=== PATIENT | female | born 1935 | race Caucasian/White ===

== ENCOUNTER 2018-02-12 12:33 | Inpatient (IN) ==
[2018-02-15] MEDS ORDERED: traMADol 50 MG TABLET PO PRN (00:27)
[2018-02-15] MEDS ORDERED: D5% in Water 1,000 ML IVC PRN (03:15)
[2018-02-15] MEDS ORDERED: *HR* Dextrose 50 % in Water (Syg) 50 ML SYRINGE IVP PRN (03:15)
[2018-02-15] MEDS ORDERED: Dextrose Gel 15 GM/37.5 ML TUBE PO PRN ×2 (03:15)
[2018-02-15] MEDS ORDERED: Nitroglycerin 0.4 MG TAB.SUBL SL PRN (03:17)
[2018-02-15] MEDS: *HR* Enoxaparin 40 MG/0.4 ML SYRINGE SQ SCH (05:36)
[2018-02-15 05:49] LABS: Basophils % 0.2 %; Eosinophils # 0.2 K/mcL (0.0-0.6); Eosinophils % 2.7 %; Hematocrit 21.8 % (35.3-44.9); Hemoglobin 7.4 g/dL (11.5-15.4); Immature Granulocytes % 1.7 % (0-4); Lymphocytes # 1.6 K/mcL (0.6-4.6); Lymphocytes % 27.5 %; Mean Corpuscular HGB Conc 33.9 g/dL (31.6-35.5); Mean Corpuscular Hemoglobin 32.7 pg (28.0-33.3); Mean Corpuscular Volume 96.5 fL (83.0-100.0); Mean Platelet Volume 10.1 fL (9.4-12.4); Monocytes # 0.7 K/mcL (0.0-1.3); Monocytes % 11.6 %; Neutrophils # 3.3 K/mcL (1.6-8.9); Nucleated Red Blood Cells 0.9 /100 WBC (0); Platelet Count 175 K/mcL (140-400); Red Blood Count 2.26 M/mcL (3.82-4.97); Red Cell Distribution Width 13.9 % (11.5-14.5); Segmented Neutrophils % 56.3 %
[2018-02-15 06:06] LABS: Alanine Aminotransferase 12 Units/L (7-52); Albumin 2.6 g/dL (3.5-5.7); Albumin/Globulin Ratio 1.2 (1.1-2.2); Alkaline Phosphatase 43 Units/L (34-104); Aspartate Amino Transferase 23 Units/L (13-39); BUN/Creatinine Ratio 10 (6-26); Blood Urea Nitrogen 8 mg/dL (8-23); Calcium 8.5 mg/dL (8.6-10.3); Carbon Dioxide 29 mEq/L (23-29); Chloride 104 mEq/L (98-107); Globulin 2.1 g/dL (2.4-3.5); Glucose 96 mg/dL (70-105); Magnesium 1.5 mg/dL (1.6-2.6); Osmolality,Calculated 288 (280-300); Potassium 3.7 mEq/L (3.5-5.1); Sodium 140 mEq/L (136-145); Total Protein 4.7 g/dL (6.4-8.9); eGFR For Non-African Americans > 60 (> 60)
[2018-02-15] MEDS: Insulin LISPRO 300 UNITS/3 ML VIAL SQ SCH ×4 (07:50→20:48)
[2018-02-15] MEDS: Aspirin Enteric Coated 81 MG Tablet PO SCH (08:40)
[2018-02-15] MEDS: Acetaminophen 325 MG TABLET PO PRN (08:40)
[2018-02-15] MEDS: Iron Polysaccharide Complex 150 MG CAPSULE PO SCH (08:41)
[2018-02-15] MEDS: *HR* Metformin 500 MG TABLET PO SCH ×2 (08:41→17:31)
[2018-02-15] MEDS: *HR* Glimepiride 2 MG TABLET PO SCH (08:41)
--- NOTE | 2018-02-15 10:34 | Internal Med History&Physical ---
Date of Encounter: 02/15/18 Time of Encounter: 10:30 Assessment and Plan (1) S/P hip replacement Current visit: Yes Status: Acute Patient was admitted to facility for rehabilitation due to right total hip replacement that was performed at [facility] on 02/09/2018. Right hip shows minimal amount of edema but otherwise incisions look healthy and intact. Patient states that her pain has been well tolerated with current pain medications. Physical therapy evaluation pending with recommendations. We will continue with current medications and plan of care. Qualifiers: Laterality: right Qualified Code(s): Z96.641 - Presence of right artificial hip joint (2) Diabetes Current visit: Yes Status: Chronic No acute issues at this time. Patient states that her glucoses usually well- controlled when at home and that she usually only checks her morning fasting glucoses. Patient currently is on fingersticks before meals and at bedtime and we will continue with sliding scale coverage and will continue with her home regimen. 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 We will continue with current medications. Qualifiers: Hypertension type: essential hypertension Qualified Code(s): I10 - Essential (primary) hypertension (4) CAD (coronary artery disease) Current visit: Yes Status: Chronic No acute issues. Patient denies any chest palpitations or discomforts. We will continue with current medications. Qualifiers: Coronary Disease-Associated Artery/Lesion type: unspecified vessel or lesion type [place] vs. transplanted heart: [place] heart Associated angina: angina presence unspecified Qualified Code(s): I25.10 - Atherosclerotic heart disease of [place] coronary artery without angina pectoris (5) Osteoarthritis Current visit: Yes Status: Chronic Patient complaints of moderate joint pain to bilateral shoulders, which she states is chronic arthritic pain that she is experienced. Patient states that her pain is tolerable with current medications. We will continue with current therapy and plan of care Qualifiers: Osteoarthritis location: unspecified site Osteoarthritis type: unspecified Qualified Code(s): M19.90 - Unspecified osteoarthritis, unspecified site (6) Anemia Current visit: Yes Status: Acute Patient's labs reviewed this morning which shows a hemoglobin of 7.4. We will review patient's medical records from Hospital to evaluate her last existing hemoglobin. Agent currently is asymptomatic with vital signs stable and denies any dizziness or palpitations. We will repeat labs in the morning Qualifiers: Anemia type: unspecified type Qualified Code(s): D64.9 - Anemia, unspecified Internal Medicine - H&P: HPI Chief complaint: right THR Admitted From: Hospital to Hospital Transfer Plans for Post Hospital Care: Home History of present illness: Ms. Funes is a 82 year old female, who was transfered from an [facility], where she had an elective right THR on 02/09/2018. Her recovery at the hospital per medical records was uneventful. Patient as transfered to this facility for rehab due to deconditioning secondary the the right THR. Patient has a history of OA, DM, CAD and HTN. She states that her pain has been fairly well controlled with current oral pain meds. States that most of her pain has really been from the arthritic pain to her bilateral shoulders. She states that she has not had a BM in several days. Denies any abdominal cramping or pain. Denies any dyspnea or productive cough. States that her DM has usually been well controlled and that she usually only checks her glucose in the mornings. Past Med Surg Social Fam HX - Past Medical History Medical history: coronary artery disease, diabetes, hyperlipidemia, hypertension Additional medical history: osteoarthritis Psychiatric history: no psych history - Past Surgical History Surgical History: breast surgery, pacemaker/AICD Additional surgical history: bunion excision, breast lumpectomy - Social History Smoking Status: Never smoker Smokeless Tobacco Status: No Alcohol use: none Drug use: none Internal Medicine - H&P: Meds Aspirin [Lo-Dose Aspirin EC] 81 mg PO DAILY 02/15/18 [History] Atenolol [Tenormin] 50 mg PO DAILY 02/15/18 [History] Atorvastatin Calcium [Lipitor] 80 mg PO HS 02/15/18 [History] Chlorthalidone [Chlorthalidone] 12.5 mg PO DAILY 02/15/18 [History] Glimepiride [Amaryl] 2 mg PO DAILY 02/15/18 [History] Levothyroxine [Synthroid] 75 mcg PO DAILY 02/15/18 [History] Metformin HCl 500 mg PO BID 02/15/18 [History] Vitamin E Acetate [Vitamin E] 400 unit PO DAILY 02/15/18 [History] 3 Allergy/AdvReac Type Severity Reaction Status Date / Time codeine AdvReac Vomiting Verified 02/15/18 00:25 All Systems PM: A 10-system review of systems was performed and is negative for pertinent findings except as documented above in the HPI. - Constitutional Constitutional: no chills, no fever(s), no night sweats - EENT Eyes: as per HPI, no change in vision, no discharge, no pain, no photophobia Ears: no ear discharge, no ear pain, no tinnitus Nose, mouth and throat: no dysphagia, no nasal discharge, no neck pain, no sore throat - Cardiovascular Cardiovascular ROS IM: as per HPI, no chest pain, no diaphoresis, no dyspnea, no lightheadedness, no palpitations, no syncope - Respiratory Respiratory: as per HPI, no cough, no dyspnea, no wheezing, no excessive phlegm production - Gastrointestinal Gastrointestinal: no abdominal pain, no diarrhea, no hematemesis, no hematochezia, no melena, no nausea, no vomiting - Genitourinary Genitourinary: no change in urinary stream, no dysuria, no flank pain, no hematuria - Musculoskeletal Musculoskeletal ROS IM: as per HPI, no numbness, no tingling - Integumentary Integumentary IM: as per HPI, no rash, no unusual bruising - Neurological Neurological ROS: as per HPI, no confusion, no convulsions, no focal weakness, no numbness, no tingling, no tremor(s) - Hematologic/Lymphatic Hematologic/Lymphatic: no easy bruising - Constitutional Vitals: Temp Pulse Resp BP Pulse Ox 98.3 F 73 16 121/67 93 02/15/18 07:09 02/15/18 07:09 02/15/18 07:09 02/15/18 07:09 02/15/18 07:09 General appearance: Present: A&O X 3, pleasant - Head Head exam: Present: atraumatic, normocephalic - Eye Eye exam: Present: PERRL, conjuntiva pink, sclera anicteric Pupils: Present: PERRL - Neck Neck exam general surgery: Present: supple, trachea midline. Absent: lymphadenopathy - Respiratory Respiratory exam: Present: CTAB. Absent: accessory muscle use, rales, rhonchi, wheezes - Cardiovascular Cardiovascular exam: Present: RRR, +S1, +S2. Absent: diastolic murmur, gallop, rubs, systolic murmur - GI/Abdominal GI/Abdominal exam: Present: normal bowel sounds, soft, no peritoneal signs. Absent: distended, tenderness - Extremities Exam Extremities exam: Present: warm, radial pulses palpable and symmetrical. Absent : calf tenderness, cyanotic, pedal edema Additional comments: Right hip shows moderate edema along the surgical area. Right lateral hip and thigh surgical incisions remain dry and intact. No erythema with minimal ecchymosis - Neurological Exam Neurological exam: Present: CN II-XII intact, oriented X3, no focal deficits. Absent: pronater drift, facial droop, speech deficit - Skin Skin exam: Present: dry, intact Internal Med - H&P Results - Labs CBC & Chem 7: 02/15/18 05:25 02/15/18 05:25 Labs: Short CBC 02/15/18 Range/Units 05:25 WBC 5.9 (4.3-11.1) K/mcL Hgb 7.4 L (11.5-15.4) g/dL Hct 21.8 L (35.3-44.9) % Plt Count 175 (140-400) K/mcL Neutrophils # 3.3 (1.6-8.9) K/mcL BMP 02/15/18 05:25 Sodium 140 Potassium 3.7 Chloride 104 Carbon Dioxide 29 BUN 8 Creatinine 0.78 Glucose 96 Calcium 8.5 L Liver Function 02/15/18 Range/Units 05:25 Total Bilirubin 1.0 (0.3-1.0) mg/dL AST 23 (13-39) Units/L ALT 12 (7-52) Units/L Alkaline Phosphatase 43 (34-104) Units/L Albumin 2.6 L (3.5-5.7) g/dL
[2018-02-15 14:38] LABS: Estimated Average Glucose 131 mg/dl; Hemoglobin A1C 6.2 %
[2018-02-15] MEDS: Magnesium Oxide 400 MG TABLET PO SCH (20:47)
[2018-02-16] MEDS: traMADol 50 MG TABLET PO PRN (02:31)
[2018-02-16] MEDS: *HR* Enoxaparin 40 MG/0.4 ML SYRINGE SQ SCH (06:14)
[2018-02-16] MEDS: Ondansetron ODT 4 MG TAB.RAPDIS SL PRN ×2 (07:23→14:40)
[2018-02-16] MEDS: Insulin LISPRO 300 UNITS/3 ML VIAL SQ SCH ×4 (08:01→19:56)
[2018-02-16] MEDS: *HR* Glimepiride 2 MG TABLET PO SCH (08:03)
[2018-02-16] MEDS: *HR* Metformin 500 MG TABLET PO SCH ×2 (08:03→17:00)
[2018-02-16] MEDS: Aspirin Enteric Coated 81 MG Tablet PO SCH (10:21)
[2018-02-16] MEDS: Iron Polysaccharide Complex 150 MG CAPSULE PO SCH (10:22)
[2018-02-16] MEDS: Magnesium Oxide 400 MG TABLET PO SCH ×2 (10:22→19:53)
--- NOTE | 2018-02-16 10:24 | Internal Med Progress Note ---
Date of Encounter: 02/16/18 Time of Encounter: 10:21 - Assessment and plan (1) S/P hip replacement Current Visit: Yes Status: Acute Assessment and plan: Participating well with therapy. Will continue to follow. No sign of infection surgical site. Pain medication effective. Follow up with ortho as scheduled. Qualifiers: Laterality: right Qualified Code(s): Z96.641 - Presence of right artificial hip joint (2) Constipation Current Visit: Yes Status: Acute Assessment and plan: start miralax today. will follow for results. Qualifiers: Constipation type: slow transit constipation Qualified Code(s): K59.01 - Slow transit constipation (3) Diabetes Current Visit: Yes Status: Chronic Assessment and plan: Controlled with current medication. Monitor fingerstick blood sugar. Will adjust medicines as necessary. Qualifiers: Diabetes mellitus type: type 2 Diabetes mellitus group home insulin use: unspecified group home insulin use status Diabetes mellitus complication status : with unspecified complications Qualified Code(s): E11.8 - Type 2 diabetes mellitus with unspecified complications (4) HTN (hypertension) Current Visit: Yes Status: Chronic Assessment and plan: Controlled with current medication. Monitor blood pressure. Qualifiers: Hypertension type: essential hypertension Qualified Code(s): I10 - Essential (primary) hypertension (5) CAD (coronary artery disease) Current Visit: Yes Status: Chronic Assessment and plan: Denies chest pain. Continue current medication. Qualifiers: Coronary Disease-Associated Artery/Lesion type: unspecified vessel or lesion type [place] vs. transplanted heart: [place] heart Associated angina: angina presence unspecified Qualified Code(s): I25.10 - Atherosclerotic heart disease of [place] coronary artery without angina pectoris (6) Osteoarthritis Current Visit: Yes Status: Chronic Assessment and plan: Pain controlled. Qualifiers: Osteoarthritis location: unspecified site Osteoarthritis type: unspecified Qualified Code(s): M19.90 - Unspecified osteoarthritis, unspecified site (7) Anemia Current Visit: Yes Status: Acute Assessment and plan: Last hemoglobin 7.4. Blood pressure stable. Patient refuses transfusion due to presybeterian beliefs. Qualifiers: Anemia type: unspecified type Qualified Code(s): D64.9 - Anemia, unspecified - Time Spent With Patient less than 15 minutes - Subjective Interval history: Patient participating in therapy. Complains of dizziness while sitting on the side of the bed. Also complaining of nausea. Has not had a bowel movement once prior to surgery. States pain is controlled with current pain medication. Hemoglobin was last 7.4 patient refuses transfusion. Blood pressure stable. Discussed adding Miralax. Maintaining appetite and hydration. Denies shortness of breath or chest pain. Denies fever, chills vomiting or diarrhea. Denies abdominal pain. - Constitutional Vitals: Temp Pulse Resp BP Pulse Ox 99.2 F 69 16 116/67 94 02/16/18 07:12 02/16/18 07:12 02/16/18 07:12 02/16/18 07:12 02/16/18 07:12 General appearance: Present: cooperative, A&O X 3, pleasant, no acute distress, answers questions appropriately - Head Head exam: Present: atraumatic, normocephalic - Eye Eye exam: Present: PERRL, conjuntiva pink, sclera anicteric Pupils: Present: PERRL - Neck Neck exam general surgery: Present: supple, trachea midline. Absent: lymphadenopathy - Respiratory Respiratory exam: Present: CTAB. Absent: accessory muscle use, rales, rhonchi, wheezes - Cardiovascular Cardiovascular exam: Present: RRR, +S1, +S2. Absent: diastolic murmur, gallop, rubs, systolic murmur - GI/Abdominal GI/Abdominal exam: Present: normal bowel sounds, soft, no peritoneal signs. Absent: distended, tenderness - Extremities Exam Extremities exam: Present: warm, radial pulses palpable and symmetrical. Absent : calf tenderness, cyanotic, pedal edema - Incison Comments: Right hip incision dressing dry and intact. Surrounding ecchymosis and edema. - Neurological Exam Neurological exam: Present: CN II-XII intact, oriented X3, no focal deficits. Absent: pronater drift, facial droop, speech deficit - Skin Skin exam: Present: dry, intact Internal Medicine: Result - Labs CBC & Chem 7: 02/15/18 05:25 02/15/18 05:25 Consult Discharge Plan - Plan Referrals: NONE,PCP [Primary Care Provider] -
[2018-02-17 05:24] LABS: Hematocrit 23.8 % (35.3-44.9)
[2018-02-17] MEDS: *HR* Enoxaparin 40 MG/0.4 ML SYRINGE SQ SCH (06:08)
[2018-02-17] MEDS: Insulin LISPRO 300 UNITS/3 ML VIAL SQ SCH ×4 (07:13→20:33)
[2018-02-17] MEDS: Iron Polysaccharide Complex 150 MG CAPSULE PO SCH (08:15)
[2018-02-17] MEDS: *HR* Glimepiride 2 MG TABLET PO SCH (08:15)
[2018-02-17] MEDS: Magnesium Oxide 400 MG TABLET PO SCH ×2 (08:15→20:34)
[2018-02-17] MEDS: Aspirin Enteric Coated 81 MG Tablet PO SCH (08:15)
[2018-02-17] MEDS: *HR* Metformin 500 MG TABLET PO SCH ×2 (08:16→17:51)
--- NOTE | 2018-02-17 10:52 | Internal Med Progress Note ---
Date of Encounter: 02/17/18 Time of Encounter: 10:47 - Assessment and plan (1) S/P hip replacement Current Visit: Yes Status: Acute Assessment and plan: Participating well with therapy. Will continue to follow. No sign of infection surgical site. Pain medication effective. Follow up with ortho as scheduled. Qualifiers: Laterality: right Qualified Code(s): Z96.641 - Presence of right artificial hip joint (2) Constipation Current Visit: Yes Status: Acute Assessment and plan: 2 small bowel movements today. Continue Justine lacks. Qualifiers: Constipation type: slow transit constipation Qualified Code(s): K59.01 - Slow transit constipation (3) Diabetes Current Visit: Yes Status: Chronic Assessment and plan: Controlled with current medication. Monitor fingerstick blood sugar. Will adjust medicines as necessary. 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 Monitor blood pressure. Qualifiers: Hypertension type: essential hypertension Qualified Code(s): I10 - Essential (primary) hypertension (5) CAD (coronary artery disease) Current Visit: Yes Status: Chronic Assessment and plan: Denies chest pain. Continue current medication. Qualifiers: Coronary Disease-Associated Artery/Lesion type: unspecified vessel or lesion type [place] vs. transplanted heart: [place] heart Associated angina: angina presence unspecified Qualified Code(s): I25.10 - Atherosclerotic heart disease of [place] coronary artery without angina pectoris (6) Osteoarthritis Current Visit: Yes Status: Chronic Assessment and plan: Pain controlled. Qualifiers: Osteoarthritis location: unspecified site Osteoarthritis type: unspecified Qualified Code(s): M19.90 - Unspecified osteoarthritis, unspecified site (7) Anemia Current Visit: Yes Status: Acute Assessment and plan: Improving. Hemoglobin 8.0 today. Was 7.4. Blood pressure stable. Patient refuses transfusion due to nondenominational beliefs. Qualifiers: Anemia type: unspecified type Qualified Code(s): D64.9 - Anemia, unspecified - Time Spent With Patient less than 15 minutes - Subjective Interval history: Patient participating in therapy. States dizziness has improved. Hemoglobin 8.0 which has improved from 7.4. Had small bowel movement times 2 today. Blood pressure stable. Maintaining appetite and hydration. Denies shortness of breath or chest pain. Denies fever, chills vomiting or diarrhea. Denies abdominal pain. - Constitutional Vitals: Temp Pulse Resp BP Pulse Ox 97.9 F 75 18 111/57 90 02/17/18 07:19 02/17/18 07:19 02/17/18 07:19 02/17/18 07:19 02/17/18 07:19 General appearance: Present: cooperative, A&O X 3, pleasant, no acute distress, answers questions appropriately - Head Head exam: Present: atraumatic, normocephalic - Eye Eye exam: Present: PERRL, conjuntiva pink, sclera anicteric Pupils: Present: PERRL - Neck Neck exam general surgery: Present: supple, trachea midline. Absent: lymphadenopathy - Respiratory Respiratory exam: Present: CTAB. Absent: accessory muscle use, rales, rhonchi, wheezes - Cardiovascular Cardiovascular exam: Present: RRR, +S1, +S2. Absent: diastolic murmur, gallop, rubs, systolic murmur - GI/Abdominal GI/Abdominal exam: Present: normal bowel sounds, soft, no peritoneal signs. Absent: distended, tenderness - Extremities Exam Extremities exam: Present: warm, radial pulses palpable and symmetrical. Absent : calf tenderness, cyanotic, pedal edema - Incison Comments: Right hip incision dressing dry and intact. No sign of infection - Neurological Exam Neurological exam: Present: CN II-XII intact, oriented X3, no focal deficits. Absent: pronater drift, facial droop, speech deficit - Skin Skin exam: Present: dry, intact Internal Medicine: Result - Labs CBC & Chem 7: 02/17/18 05:20 02/15/18 05:25 Labs: Short CBC 02/17/18 Range/Units 05:20 Hgb 8.0 L (11.5-15.4) g/dL Hct 23.8 L (35.3-44.9) % Consult Discharge Plan - Plan Referrals: NONE,PCP [Primary Care Provider] -
[2018-02-18] MEDS: *HR* Enoxaparin 40 MG/0.4 ML SYRINGE SQ SCH (05:03)
[2018-02-18] MEDS: Insulin LISPRO 300 UNITS/3 ML VIAL SQ SCH ×4 (08:08→20:05)
[2018-02-18] MEDS: Aspirin Enteric Coated 81 MG Tablet PO SCH (08:14)
[2018-02-18] MEDS: Iron Polysaccharide Complex 150 MG CAPSULE PO SCH (08:14)
[2018-02-18] MEDS: *HR* Glimepiride 2 MG TABLET PO SCH (08:15)
[2018-02-18] MEDS: Magnesium Oxide 400 MG TABLET PO SCH ×2 (08:15→20:17)
[2018-02-18] MEDS: *HR* Metformin 500 MG TABLET PO SCH ×2 (08:15→17:37)
--- NOTE | 2018-02-18 09:58 | Internal Med Progress Note ---
Date of Encounter: 02/18/18 Time of Encounter: 09:56 - Assessment and plan (1) S/P hip replacement Current Visit: Yes Status: Acute Assessment and plan: Participating well with therapy. Will continue to follow. No sign of infection surgical site. Pain medication effective. Follow up with ortho as scheduled. Qualifiers: Laterality: right Qualified Code(s): Z96.641 - Presence of right artificial hip joint (2) Constipation Current Visit: Yes Status: Acute Assessment and plan: improving. continue miralax. Qualifiers: Constipation type: slow transit constipation Qualified Code(s): K59.01 - Slow transit constipation (3) Diabetes Current Visit: Yes Status: Chronic Assessment and plan: Controlled with current medication. Monitor fingerstick blood sugar. Will adjust medicines as necessary. 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 Monitor blood pressure. Qualifiers: Hypertension type: essential hypertension Qualified Code(s): I10 - Essential (primary) hypertension (5) CAD (coronary artery disease) Current Visit: Yes Status: Chronic Assessment and plan: Denies chest pain. Continue current medication. Qualifiers: Coronary Disease-Associated Artery/Lesion type: unspecified vessel or lesion type [place] vs. transplanted heart: [place] heart Associated angina: angina presence unspecified Qualified Code(s): I25.10 - Atherosclerotic heart disease of [place] coronary artery without angina pectoris (6) Osteoarthritis Current Visit: Yes Status: Chronic Assessment and plan: Pain controlled. Qualifiers: Osteoarthritis location: unspecified site Osteoarthritis type: unspecified Qualified Code(s): M19.90 - Unspecified osteoarthritis, unspecified site (7) Anemia Current Visit: Yes Status: Acute Assessment and plan: Improving. Hemoglobin 8.0 yesterday. Was 7.4previously. Blood pressure stable. Patient refuses transfusion due to bahai beliefs. Qualifiers: Anemia type: unspecified type Qualified Code(s): D64.9 - Anemia, unspecified - Time Spent With Patient less than 15 minutes - Subjective Interval history: Patient participating in therapy. States dizziness has improved. Bowels moving normal. Blood pressure stable. Maintaining appetite and hydration. Denies shortness of breath or chest pain. Denies fever, chills vomiting or diarrhea. - Constitutional Vitals: Temp Pulse Resp BP Pulse Ox 98.3 F 70 17 129/65 94 02/18/18 07:21 02/18/18 07:21 02/18/18 07:21 02/18/18 07:21 02/18/18 07:21 General appearance: Present: cooperative, A&O X 3, pleasant, no acute distress, answers questions appropriately - Head Head exam: Present: atraumatic, normocephalic - Eye Eye exam: Present: PERRL, conjuntiva pink, sclera anicteric Pupils: Present: PERRL - Neck Neck exam general surgery: Present: supple, trachea midline. Absent: lymphadenopathy - Respiratory Respiratory exam: Present: CTAB. Absent: accessory muscle use, rales, rhonchi, wheezes - Cardiovascular Cardiovascular exam: Present: RRR, +S1, +S2. Absent: diastolic murmur, gallop, rubs, systolic murmur - GI/Abdominal GI/Abdominal exam: Present: normal bowel sounds, soft, no peritoneal signs. Absent: distended, tenderness - Extremities Exam Extremities exam: Present: warm, radial pulses palpable and symmetrical. Absent : calf tenderness, cyanotic, pedal edema - Incison Comments: Right hip dressing dry and intact. No drainage. - Neurological Exam Neurological exam: Present: CN II-XII intact, oriented X3, no focal deficits. Absent: pronater drift, facial droop, speech deficit - Skin Skin exam: Present: dry, intact Internal Medicine: Result - Labs CBC & Chem 7: 02/17/18 05:20 02/15/18 05:25 Consult Discharge Plan - Plan Referrals: NONE,PCP [Primary Care Provider] -
[2018-02-18] MEDS: traMADol 50 MG TABLET PO PRN (10:16)
[2018-02-19] MEDS: *HR* Enoxaparin 40 MG/0.4 ML SYRINGE SQ SCH (06:19)
[2018-02-19] MEDS: *HR* Glimepiride 2 MG TABLET PO SCH (08:47)
[2018-02-19] MEDS: Aspirin Enteric Coated 81 MG Tablet PO SCH (08:47)
[2018-02-19] MEDS: Magnesium Oxide 400 MG TABLET PO SCH ×2 (08:47→20:43)
[2018-02-19] MEDS: Iron Polysaccharide Complex 150 MG CAPSULE PO SCH (08:48)
[2018-02-19] MEDS: traMADol 50 MG TABLET PO PRN (08:48)
[2018-02-19] MEDS: *HR* Metformin 500 MG TABLET PO SCH ×2 (08:50→17:31)
[2018-02-19] MEDS: Insulin LISPRO 300 UNITS/3 ML VIAL SQ SCH ×4 (09:26→20:41)
--- NOTE | 2018-02-19 10:46 | Internal Med Progress Note ---
Date of Encounter: 02/19/18 Time of Encounter: 10:43 - Assessment and plan (1) S/P hip replacement Current Visit: Yes Status: Acute Assessment and plan: No acute issues. Patient continues to have some tenderness during mobilization , which she states has improved over the past 24 hours. Recent x-ray right hip appears nonacute. Surgical incisions appear to be healing well with no signs of infection. Hip alignment appears normal with no deformity noted. He does state that therapy has been progressing well. Recent hemoglobin was obtained which shows at 8.0. Continue with current plan of care and medications. Pain is been well managed with current medications Qualifiers: Laterality: right Qualified Code(s): Z96.641 - Presence of right artificial hip joint (2) Diabetes Current Visit: Yes Status: Chronic Assessment and plan: No acute issues. Patient's glucose has maintained less than 150 on most fingersticks. We will reduce her frequency of fingersticks to twice a day before meals Qualifiers: Diabetes mellitus type: type 2 Diabetes mellitus retirement insulin use: unspecified intermediate project manager insulin use status Diabetes mellitus complication status : with unspecified complications Qualified Code(s): E11.8 - Type 2 diabetes mellitus with unspecified complications (3) HTN (hypertension) Current Visit: Yes Status: Chronic Assessment and plan: Vital signs remained stable. We will continue with current medications. Qualifiers: Hypertension type: essential hypertension Qualified Code(s): I10 - Essential (primary) hypertension (4) CAD (coronary artery disease) Current Visit: Yes Status: Chronic Assessment and plan: No acute issues. Patient denies any chest discomforts or palpitations. Denies any dyspnea. We will continue with current medications Qualifiers: Coronary Disease-Associated Artery/Lesion type: unspecified vessel or lesion type [place] vs. transplanted heart: [place] heart Associated angina: angina presence unspecified Qualified Code(s): I25.10 - Atherosclerotic heart disease of [place] coronary artery without angina pectoris (5) Osteoarthritis Current Visit: Yes Status: Chronic Assessment and plan: Patient continues with generalized arthritic discomforts, but states that her overall pain status has improved over the past few days. We will continue with current therapy. We will continue with current medications Qualifiers: Osteoarthritis location: unspecified site Osteoarthritis type: unspecified Qualified Code(s): M19.90 - Unspecified osteoarthritis, unspecified site (6) Anemia Current Visit: Yes Status: Acute Assessment and plan: Patient had a hemoglobin that was done this morning which shows at 8.0, which has improved from 7.4 several days ago. We will continue to monitor with serial labs. No signs of active bleeding. Qualifiers: Anemia type: unspecified type Qualified Code(s): D64.9 - Anemia, unspecified - Time Spent With Patient less than 15 minutes - Subjective Interval history: Patient appears relaxed and currently complains of slight right hip pain during ambulation while therapy. Patient states that her pain is somewhat better than it has been over the past few days and believes that she is only strained her hip. Recent x-ray right hip shows no acute process. Denies any dyspnea or other issues. States that her pain has been tolerable with current medications. - Constitutional Vitals: Temp Pulse Resp BP Pulse Ox 98.7 F 70 16 126/55 92 02/19/18 08:00 02/19/18 08:00 02/19/18 08:00 02/19/18 08:00 02/19/18 08:00 General appearance: Present: cooperative, A&O X 3, pleasant, no acute distress, answers questions appropriately - Head Head exam: Present: atraumatic, normocephalic - Eye Eye exam: Present: PERRL, conjuntiva pink, sclera anicteric Pupils: Present: PERRL - Neck Neck exam general surgery: Present: supple, trachea midline. Absent: lymphadenopathy - Respiratory Respiratory exam: Present: CTAB. Absent: accessory muscle use, rales, rhonchi, wheezes - Cardiovascular Cardiovascular exam: Present: RRR, +S1, +S2. Absent: diastolic murmur, gallop, rubs, systolic murmur - GI/Abdominal GI/Abdominal exam: Present: normal bowel sounds, soft, no peritoneal signs. Absent: distended, tenderness - Extremities Exam Extremities exam: Present: warm, radial pulses palpable and symmetrical. Absent : calf tenderness, cyanotic, pedal edema Additional comments: Right hip with slight edema surrounding surgical site. Surgical incisions on lateral hip and thigh currently healing well with no erythema or ecchymosis noted. - Neurological Exam Neurological exam: Present: CN II-XII intact, oriented X3, no focal deficits. Absent: pronater drift, facial droop, speech deficit - Skin Skin exam: Present: dry, intact Internal Medicine: Result - Labs CBC & Chem 7: 02/17/18 05:20 02/15/18 05:25 - Impressions Impressions Hip X-Ray 02/18/18 19:26 IMPRESSION: Recent postsurgical change of right total hip arthroplasty with no acute abnormality detected. D/ / iKp Giang MD / Kip Giang MD Interpreting Provider: Kip Giang MD Consult Discharge Plan - Plan Referrals: NONE,PCP [Primary Care Provider] -
[2018-02-19] MEDS ORDERED: Mag Hydrox/Al Hydrox/Simeth 30 ML UDC PO PRN (13:26)
[2018-02-19] MEDS: Famotidine 20 MG TABLET PO SCH (17:31)
[2018-02-19] MEDS: Acetaminophen 325 MG TABLET PO PRN (17:31)
[2018-02-19] MEDS: Ondansetron ODT 4 MG TAB.RAPDIS SL PRN (20:51)
[2018-02-20] MEDS: *HR* Enoxaparin 40 MG/0.4 ML SYRINGE SQ SCH (05:23)
[2018-02-20 06:21] LABS: Alanine Aminotransferase 18 Units/L (7-52); Albumin 3.1 g/dL (3.5-5.7); Albumin/Globulin Ratio 1.4 (1.1-2.2); Alkaline Phosphatase 59 Units/L (34-104); Aspartate Amino Transferase 25 Units/L (13-39); BUN/Creatinine Ratio 17 (6-26); Blood Urea Nitrogen 14 mg/dL (8-23); Calcium 8.9 mg/dL (8.6-10.3); Carbon Dioxide 28 mEq/L (23-29); Chloride 102 mEq/L (98-107); Globulin 2.2 g/dL (2.4-3.5); Glucose 45 mg/dL (70-105); Magnesium 1.8 mg/dL (1.6-2.6); Osmolality,Calculated 284 (280-300); Potassium 3.9 mEq/L (3.5-5.1); Sodium 138 mEq/L (136-145); Total Protein 5.3 g/dL (6.4-8.9); eGFR For Non-African Americans > 60 (> 60)
[2018-02-20 07:29] LABS: Hematocrit 27.5 % (35.3-44.9); Hemoglobin 8.9 g/dL (11.5-15.4); Mean Corpuscular HGB Conc 32.4 g/dL (31.6-35.5); Mean Corpuscular Hemoglobin 34.2 pg (28.0-33.3); Mean Corpuscular Volume 105.8 fL (83.0-100.0); Mean Platelet Volume 9.8 fL (9.4-12.4); Platelet Count 260 K/mcL (140-400); Red Cell Distribution Width 18.3 % (11.5-14.5)
[2018-02-20] MEDS: Magnesium Oxide 400 MG TABLET PO SCH ×2 (08:42→20:24)
[2018-02-20] MEDS: Iron Polysaccharide Complex 150 MG CAPSULE PO SCH (08:42)
[2018-02-20] MEDS: *HR* Metformin 500 MG TABLET PO SCH ×2 (08:42→17:11)
[2018-02-20] MEDS: Famotidine 20 MG TABLET PO SCH ×2 (08:42→17:11)
[2018-02-20] MEDS: Aspirin Enteric Coated 81 MG Tablet PO SCH (08:45)
[2018-02-20] MEDS: Insulin LISPRO 300 UNITS/3 ML VIAL SQ SCH ×4 (08:45→20:21)
[2018-02-20] MEDS: *HR* Glimepiride 2 MG TABLET PO SCH (08:45)
--- NOTE | 2018-02-20 08:55 | Internal Med Progress Note ---
Date of Encounter: 02/20/18 Time of Encounter: 08:53 - Assessment and plan (1) S/P hip replacement Current Visit: Yes Status: Acute Assessment and plan: Incision is s table pain is well controlled getting Rehab No complications improving Qualifiers: Laterality: right Qualified Code(s): Z96.641 - Presence of right artificial hip joint (2) Diabetes Current Visit: Yes Status: Chronic Assessment and plan: On oral meds HBA1c not available Her last few blood sugars have been low D/C amryl continue Metformin . Due to her age hypoglycemic sides effects can be more harmful then high Blood sugars . HBA1c ordered Qualifiers: Diabetes mellitus type: type 2 Diabetes mellitus [place] insulin use: unspecified longterm insulin use status Diabetes mellitus complication status : with unspecified complications Qualified Code(s): E11.8 - Type 2 diabetes mellitus with unspecified complications (3) HTN (hypertension) Current Visit: Yes Status: Chronic Assessment and plan: stable On meds will continue to follow Qualifiers: Hypertension type: essential hypertension Qualified Code(s): I10 - Essential (primary) hypertension (4) CAD (coronary artery disease) Current Visit: Yes Status: Chronic Assessment and plan: stable no chest pain Doing well and tolerating PT well Qualifiers: Coronary Disease-Associated Artery/Lesion type: unspecified vessel or lesion type [place] vs. transplanted heart: [place] heart Associated angina: angina presence unspecified Qualified Code(s): I25.10 - Atherosclerotic heart disease of [place] coronary artery without angina pectoris (5) Anemia Current Visit: Yes Status: Acute Assessment and plan: low H/H on Iron will follow Iron levels ordered Qualifiers: Anemia type: unspecified type Qualified Code(s): D64.9 - Anemia, unspecified (6) Constipation Current Visit: Yes Status: Acute Assessment and plan: meds given , on opoids as we for pain exacerbating her symptoms Soft Abdomen , laxatives added Qualifiers: Constipation type: slow transit constipation Qualified Code(s): K59.01 - Slow transit constipation - Subjective Interval history: Cross coverage No new complains Pain is well controlled some constipation otherwise she is feeling better NO hypoglycemic sympotms although her Blood sugars was low this morning - Constitutional Vitals: Temp Pulse Resp BP Pulse Ox 98.3 F 73 16 118/81 90 02/20/18 07:24 02/20/18 07:24 02/20/18 07:24 02/20/18 07:24 02/20/18 07:24 General appearance: Present: cooperative, A&O X 3, pleasant, no acute distress, answers questions appropriately Exam: laying comfortably in bed - Head Head exam: Present: atraumatic - Eye Eye exam: Present: EOMI, PERRL Pupils: Present: PERRL - Neck Neck exam general surgery: Present: supple. Absent: tenderness, nuchal rigidity - Respiratory Respiratory exam: Present: CTAB. Absent: accessory muscle use, chest wall tenderness, decreased breath sounds, rales, respiratory distress, rhonchi, stridor, wheezes - Cardiovascular Cardiovascular exam: Present: RRR, +S1, +S2. Absent: distant heart sounds, irregular rhythm, JVD, systolic murmur - GI/Abdominal GI/Abdominal exam: Present: hyperactive bowel sounds, normal bowel sounds, soft. Absent: distended, firm, guarding, rebound, rigid, tenderness - Extremities Exam Extremities exam: Absent: pedal edema, tenderness, warm - Incison Incision: Present: clean and dry, intact. Absent: red, swollen, inflamed, purulent, indurated - Neurological Exam Neurological exam: Present: alert, CN II-XII intact, oriented X3, no focal deficits. Absent: facial droop, speech deficit Internal Medicine: Result - Labs CBC & Chem 7: 02/20/18 05:25 02/20/18 05:25 Labs: Short CBC 02/20/18 Range/Units 05:25 WBC 7.8 (4.3-11.1) K/mcL Hgb 8.9 L (11.5-15.4) g/dL Hct 27.5 L (35.3-44.9) % Plt Count 260 (140-400) K/mcL BMP 02/20/18 05:25 Sodium 138 Potassium 3.9 Chloride 102 Carbon Dioxide 28 BUN 14 Creatinine 0.81 Glucose 45 L Calcium 8.9 Liver Function 02/20/18 Range/Units 05:25 Total Bilirubin 1.0 (0.3-1.0) mg/dL AST 25 (13-39) Units/L ALT 18 (7-52) Units/L Alkaline Phosphatase 59 (34-104) Units/L Albumin 3.1 L (3.5-5.7) g/dL - Impressions Impressions KUB X-Ray 02/19/18 13:25 IMPRESSION: Nonobstructive bowel gas pattern. D/ / Kip High MD / Kip High MD Interpreting Provider: Kip High MD Consult Discharge Plan - Plan Referrals: NONE,PCP [Primary Care Provider] -
[2018-02-21] MEDS: *HR* Enoxaparin 40 MG/0.4 ML SYRINGE SQ SCH (05:15)
[2018-02-21] MEDS: Insulin LISPRO 300 UNITS/3 ML VIAL SQ SCH ×4 (07:54→20:38)
[2018-02-21] MEDS: *HR* Glimepiride 2 MG TABLET PO SCH (07:54)
--- NOTE | 2018-02-21 08:23 | Internal Med Progress Note ---
Date of Encounter: 02/21/18 Time of Encounter: 08:21 - Assessment and plan (1) S/P hip replacement Current Visit: Yes Status: Acute Assessment and plan: stable and improving . Incision healing well .clean Qualifiers: Laterality: right Qualified Code(s): Z96.641 - Presence of right artificial hip joint (2) Diabetes Current Visit: Yes Status: Chronic Assessment and plan: HBA1c is 6.2 blood sugars doesn't need to be s tightly controlled explained to patient Amryl discontinued Qualifiers: Diabetes mellitus type: type 2 Diabetes mellitus alf insulin use: unspecified alf insulin use status Diabetes mellitus complication status : with unspecified complications Qualified Code(s): E11.8 - Type 2 diabetes mellitus with unspecified complications (3) HTN (hypertension) Current Visit: Yes Status: Chronic Assessment and plan: stable on meds no side effects no dizziness Qualifiers: Hypertension type: essential hypertension Qualified Code(s): I10 - Essential (primary) hypertension (4) CAD (coronary artery disease) Current Visit: Yes Status: Chronic Qualifiers: Coronary Disease-Associated Artery/Lesion type: unspecified vessel or lesion type [place] vs. transplanted heart: [place] heart Associated angina: angina presence unspecified Qualified Code(s): I25.10 - Atherosclerotic heart disease of [place] coronary artery without angina pectoris (5) Anemia Current Visit: Yes Status: Acute Qualifiers: Anemia type: unspecified type Qualified Code(s): D64.9 - Anemia, unspecified (6) Constipation Current Visit: Yes Status: Acute Assessment and plan: responding to meds stable and improving . Continue supportive treatment Qualifiers: Constipation type: slow transit constipation Qualified Code(s): K59.01 - Slow transit constipation - Subjective Interval history: Cross coverage No new complains Pain is well controlled Constipation is getting better and she feels much better No low blood sugars. She is interested to go home . Slept well - Constitutional Vitals: Temp Pulse Resp BP Pulse Ox 98.6 F 73 16 125/58 93 02/21/18 06:55 02/21/18 06:55 02/21/18 06:55 02/21/18 06:55 02/21/18 06:55 General appearance: Present: cooperative, A&O X 3, pleasant, no acute distress, answers questions appropriately - Head Head exam: Present: atraumatic - Eye Eye exam: Present: EOMI, PERRL Pupils: Present: PERRL - Neck Neck exam general surgery: Present: supple. Absent: tenderness, nuchal rigidity - Respiratory Respiratory exam: Present: CTAB. Absent: chest wall tenderness, respiratory distress, rhonchi, stridor, wheezes, tachypnea - Cardiovascular Cardiovascular exam: Present: RRR, +S1, +S2. Absent: irregular rhythm, JVD - GI/Abdominal GI/Abdominal exam: Present: normal bowel sounds, soft. Absent: distended, guarding, rebound, rigid - Extremities Exam Extremities exam: Absent: calf tenderness, pedal edema, tenderness - Incison Incision: Present: clean and dry, intact. Absent: draining, red, swollen, inflamed, erythema, indurated, open - Neurological Exam Neurological exam: Present: alert, CN II-XII intact, oriented X3, no focal deficits. Absent: facial droop, speech deficit Internal Medicine: Result - Labs CBC & Chem 7: 02/20/18 05:25 02/20/18 05:25 Consult Discharge Plan - Plan Referrals: NONE,PCP [Primary Care Provider] -
[2018-02-21] MEDS: Magnesium Oxide 400 MG TABLET PO SCH ×2 (09:15→20:38)
[2018-02-21] MEDS: Aspirin Enteric Coated 81 MG Tablet PO SCH (09:15)
[2018-02-21] MEDS: Famotidine 20 MG TABLET PO SCH ×2 (09:15→17:20)
[2018-02-21] MEDS: *HR* Metformin 500 MG TABLET PO SCH ×2 (09:16→17:20)
[2018-02-21] MEDS: Iron Polysaccharide Complex 150 MG CAPSULE PO SCH (09:16)
[2018-02-21] MEDS: Acetaminophen 325 MG TABLET PO PRN (09:16)
[2018-02-22] MEDS: Famotidine 20 MG TABLET PO SCH ×2 (05:41→17:31)
[2018-02-22] MEDS: *HR* Enoxaparin 40 MG/0.4 ML SYRINGE SQ SCH (05:41)
[2018-02-22 06:10] LABS: Basophils % 0.4 %; Eosinophils # 0.2 K/mcL (0.0-0.6); Eosinophils % 3.3 %; Hematocrit 30.8 % (35.3-44.9); Hemoglobin 9.9 g/dL (11.5-15.4); Immature Granulocytes % 1.2 % (0-4); Lymphocytes % 29.7 %; Mean Corpuscular HGB Conc 32.1 g/dL (31.6-35.5); Mean Corpuscular Hemoglobin 33.2 pg (28.0-33.3); Mean Corpuscular Volume 103.4 fL (83.0-100.0); Mean Platelet Volume 9.7 fL (9.4-12.4); Monocytes # 0.7 K/mcL (0.0-1.3); Monocytes % 9.4 %; Neutrophils # 3.9 K/mcL (1.6-8.9); Platelet Count 252 K/mcL (140-400); Red Blood Count 2.98 M/mcL (3.82-4.97); Red Cell Distribution Width 19.3 % (11.5-14.5)
[2018-02-22 06:28] LABS: BUN/Creatinine Ratio 14 (6-26); Blood Urea Nitrogen 13 mg/dL (8-23); Calcium 9.1 mg/dL (8.6-10.3); Carbon Dioxide 29 mEq/L (23-29); Chloride 102 mEq/L (98-107); Glucose 96 mg/dL (70-105); Osmolality,Calculated 286 (280-300); Potassium 4.6 mEq/L (3.5-5.1); Sodium 138 mEq/L (136-145); eGFR For Non-African Americans 58 (> 60)
[2018-02-22] MEDS: traMADol 50 MG TABLET PO PRN (08:27)
[2018-02-22] MEDS: Magnesium Oxide 400 MG TABLET PO SCH ×2 (08:27→20:22)
[2018-02-22] MEDS: Aspirin Enteric Coated 81 MG Tablet PO SCH (08:27)
[2018-02-22] MEDS: Iron Polysaccharide Complex 150 MG CAPSULE PO SCH (08:27)
[2018-02-22] MEDS: *HR* Metformin 500 MG TABLET PO SCH ×2 (09:25→17:32)
[2018-02-22] MEDS: Insulin LISPRO 300 UNITS/3 ML VIAL SQ SCH ×4 (09:44→20:24)
[2018-02-22] MEDS: *HR* Glimepiride 2 MG TABLET PO SCH (09:45)
--- NOTE | 2018-02-22 10:32 | Internal Med Progress Note ---
Date of Encounter: 02/22/18 Time of Encounter: 10:30 - Assessment and plan (1) S/P hip replacement Current Visit: Yes Status: Acute Assessment and plan: Participating well with therapy. Will continue to follow. No sign of infection surgical site. Pain medication effective. Follow up with ortho as scheduled. Qualifiers: Laterality: right Qualified Code(s): Z96.641 - Presence of right artificial hip joint (2) Constipation Current Visit: Yes Status: Acute Assessment and plan: improving. continue miralax. Qualifiers: Constipation type: slow transit constipation Qualified Code(s): K59.01 - Slow transit constipation (3) Diabetes Current Visit: Yes Status: Chronic Assessment and plan: Controlled with current medication. Monitor fingerstick blood sugar. Will adjust medicines as necessary. Qualifiers: Diabetes mellitus type: type 2 Diabetes mellitus fci insulin use: unspecified fci insulin use status Diabetes mellitus complication status : with unspecified complications Qualified Code(s): E11.8 - Type 2 diabetes mellitus with unspecified complications (4) HTN (hypertension) Current Visit: Yes Status: Chronic Assessment and plan: Controlled with current medication. Monitor blood pressure. Qualifiers: Hypertension type: essential hypertension Qualified Code(s): I10 - Essential (primary) hypertension (5) CAD (coronary artery disease) Current Visit: Yes Status: Chronic Assessment and plan: Denies chest pain. Continue current medication. Qualifiers: Coronary Disease-Associated Artery/Lesion type: unspecified vessel or lesion type [place] vs. transplanted heart: [place] heart Associated angina: angina presence unspecified Qualified Code(s): I25.10 - Atherosclerotic heart disease of [place] coronary artery without angina pectoris (6) Osteoarthritis Current Visit: Yes Status: Chronic Assessment and plan: Pain controlled. Qualifiers: Osteoarthritis location: unspecified site Osteoarthritis type: unspecified Qualified Code(s): M19.90 - Unspecified osteoarthritis, unspecified site (7) Anemia Current Visit: Yes Status: Acute Assessment and plan: Improving hemoglobin 9.9 today. Qualifiers: Anemia type: unspecified type Qualified Code(s): D64.9 - Anemia, unspecified - Time Spent With Patient less than 15 minutes - Subjective Interval history: Patient participating in therapy. States pain is controlled. Last bowel movement 2 days ago. Encourage to take Justine lacks today. Maintaining appetite and hydration. Denies shortness of breath or chest pain. Denies fever, chills vomiting or diarrhea. Planning for discharge to home tomorrow. - Constitutional Vitals: Temp Pulse Resp BP Pulse Ox 98.0 F 70 16 147/75 97 02/22/18 07:30 02/22/18 07:30 02/22/18 07:30 02/22/18 07:30 02/22/18 07:30 General appearance: Present: cooperative, A&O X 3, pleasant, no acute distress, answers questions appropriately - Head Head exam: Present: atraumatic, normocephalic - Eye Eye exam: Present: PERRL, conjuntiva pink, sclera anicteric Pupils: Present: PERRL - Neck Neck exam general surgery: Present: supple, trachea midline. Absent: lymphadenopathy - Respiratory Respiratory exam: Present: CTAB. Absent: accessory muscle use, rales, rhonchi, wheezes - Cardiovascular Cardiovascular exam: Present: RRR, +S1, +S2. Absent: diastolic murmur, gallop, rubs, systolic murmur - GI/Abdominal GI/Abdominal exam: Present: normal bowel sounds, soft, no peritoneal signs. Absent: distended, tenderness - Extremities Exam Extremities exam: Present: warm, radial pulses palpable and symmetrical. Absent : calf tenderness, cyanotic, pedal edema - Incison Comments: Right hip dressing dry and intact. No drainage no swelling. - Neurological Exam Neurological exam: Present: CN II-XII intact, oriented X3, no focal deficits. Absent: pronater drift, facial droop, speech deficit - Skin Skin exam: Present: dry, intact Internal Medicine: Result - Labs CBC & Chem 7: 02/22/18 05:50 02/22/18 05:50 Labs: Short CBC 02/22/18 Range/Units 05:50 WBC 6.9 (4.3-11.1) K/mcL Hgb 9.9 L (11.5-15.4) g/dL Hct 30.8 L (35.3-44.9) % Plt Count 252 (140-400) K/mcL Neutrophils # 3.9 (1.6-8.9) K/mcL BMP 02/22/18 05:50 Sodium 138 Potassium 4.6 Chloride 102 Carbon Dioxide 29 BUN 13 Creatinine 0.92 Glucose 96 Calcium 9.1 Consult Discharge Plan - Plan Referrals: NONE,PCP [Primary Care Provider] - Joyce,Pietro Levi, MD [Non-Partnered Physician] - 02/26/18 11:00 am
[2018-02-22 13:14] LABS: % Iron Saturation 23 % (15-50); Iron 73 mcg/dL (50-170); Transferrin 223 mg/dL (203-362)
[2018-02-23] MEDS ORDERED: *HR* Enoxaparin 30 MG/0.3 ML SYRINGE SQ SCH (06:00)
[2018-02-23] MEDS: Famotidine 20 MG TABLET PO SCH (06:15)
[2018-02-23] MEDS: traMADol 50 MG TABLET PO PRN (06:16)
[2018-02-23 07:24] VITALS: BP 132/62
[2018-02-23] MEDS: Insulin LISPRO 300 UNITS/3 ML VIAL SQ SCH ×2 (07:36→12:35)
[2018-02-23] MEDS: Magnesium Oxide 400 MG TABLET PO SCH (08:11)
[2018-02-23] MEDS: Aspirin Enteric Coated 81 MG Tablet PO SCH (08:11)
[2018-02-23] MEDS: *HR* Metformin 500 MG TABLET PO SCH (08:11)
[2018-02-23] MEDS: Iron Polysaccharide Complex 150 MG CAPSULE PO SCH (08:11)
--- NOTE | 2018-02-23 11:45 | Discharge Summary ---
Orders not resulted at time of discharge: Pending orders 02/19/18 13:26 Ova & Parasite Exam Routine Date of Encounter: 02/23/18 Time of Encounter: 11:39 - Discharge Diagnosis (1) S/P hip replacement Priority: Primary Status: Acute Comments: Improving. Continue home health physical therapy. Follow up with ortho as scheduled. Qualifiers: Laterality: right Qualified Code(s): Z96.641 - Presence of right artificial hip joint (2) Constipation Priority: Secondary Status: Acute Comments: Continue stool softeners. Qualifiers: Constipation type: slow transit constipation Qualified Code(s): K59.01 - Slow transit constipation (3) Diabetes Priority: Secondary Status: Chronic Comments: Controlled. Continue current medications. Follow up with PCP. Qualifiers: Diabetes mellitus type: type 2 Diabetes mellitus [employer] insulin use: unspecified fpc insulin use status Diabetes mellitus complication status : with unspecified complications Qualified Code(s): E11.8 - Type 2 diabetes mellitus with unspecified complications (4) HTN (hypertension) Priority: Secondary Status: Chronic Comments: Controlled. Monitor blood pressure. Continue current medications. Follow up with PCP. Qualifiers: Hypertension type: essential hypertension Qualified Code(s): I10 - Essential (primary) hypertension (5) CAD (coronary artery disease) Priority: Secondary Status: Chronic Comments: Denies chest pain. Continue current medications. Follow up with PCP. Qualifiers: Coronary Disease-Associated Artery/Lesion type: unspecified vessel or lesion type [place] vs. transplanted heart: [place] heart Associated angina: angina presence unspecified Qualified Code(s): I25.10 - Atherosclerotic heart disease of [place] coronary artery without angina pectoris (6) Osteoarthritis Priority: Secondary Status: Chronic Comments: Pain controlled. Qualifiers: Osteoarthritis location: unspecified site Osteoarthritis type: unspecified Qualified Code(s): M19.90 - Unspecified osteoarthritis, unspecified site (7) Anemia Priority: Secondary Status: Acute Comments: Improving. Follow up with PCP. Qualifiers: Anemia type: unspecified type Qualified Code(s): D64.9 - Anemia, unspecified Hospital course: Ms. Funes is a 82 year old female discharging to home today status post right total hip replacement. Hemoglobin stable at 9.9. Will continue home health physical therapy as well home health nursing. Follow up with PCP and ortho as scheduled. Discharge discussed with: patient, family, nurse, social work - Time Spent with Patient Total time spent providing and/or coordinating discharge services: Less than 30 minutes - Discharge Medications Home Medications: Aspirin [Lo-Dose Aspirin EC] 81 mg PO DAILY 02/15/18 [History] Atenolol [Tenormin] 50 mg PO DAILY 02/15/18 [History] Atorvastatin Calcium [Lipitor] 80 mg PO HS 02/15/18 [History] Chlorthalidone 12.5 mg PO DAILY 02/15/18 [History] Glimepiride [Amaryl] 2 mg PO DAILY 02/15/18 [History] Levothyroxine [Synthroid] 75 mcg PO DAILY 02/15/18 [History] Metformin HCl 500 mg PO BID 02/15/18 [History] Vitamin E Acetate [Vitamin E] 400 unit PO DAILY 02/15/18 [History] Acetaminophen [Tylenol] 650 mg PO Q4HR PRN tablet 02/23/18 [Rx] Docusate [Colace] 100 mg PO DAILY PRN capsule 02/23/18 [Rx] Famotidine [Pepcid] 10 mg PO BIDAC tablet 02/23/18 [Rx] Insulin LISPRO [HumaLOG] 0 units SQ HS vial 02/23/18 [Rx] Insulin LISPRO [HumaLOG] 0 units SQ TIDAC vial 02/23/18 [Rx] Iron Polysaccharide Complex [Ferrex 150] 150 mg PO DAILY capsule 02/23/18 [Rx] Mag Hydrox/Al Hydrox/Simeth [Maalox] 15 ml PO Q6HR PRN udc 02/23/18 [Rx] Magnesium Oxide [Mag-Ox] 400 mg PO BID tablet 02/23/18 [Rx] Allergies/Adverse Reactions: 3 Allergy/AdvReac Type Severity Reaction Status Date / Time codeine AdvReac Vomiting Verified 02/15/18 00:25 Date of admission: 02/14/18 23:35 Primary care physician: PCP NONE Consults: 02/15/18 01:43 Consult to Occupational Therapy [CONS] Routine Comment: Evaluate, develop and implement POC Reason for Consult: Evaluate and treat Does patient have active BEDREST order?: No Is patient medically & hemodynamically stable?: Yes Patient assessed for mobility or mobilized this visit?: Yes Consult to Physical Therapy [CONS] Routine Comment: Evaluate, develop and implement POC Reason for Consult: Evaluate and treat Does patient have active BEDREST order?: No Is patient medically & hemodynamically stable?: Yes Patient assessed for mobility or mobilized this visit?: Yes Consult to Recreational Therapy [CONS] Routine Comment: Evaluate, develop and implement POC Consult to Vp Strategic Planning [CONS] Routine Reason for SW Consult: d/c planning 02/15/18 02:30 Consult to Physical Medicine/Rehab [CONS] Routine Reason for Consult: Evaluate and treat Call Completed: Yes 02/15/18 03:39 Consult to Nutrition [CONS] Routine Comment: Consulting Provider: NUTRITION Reason for Dietary Consult: MST Score Discharging clinician: Kareem Brice Anticipated date of discharge: 02/23/18 - Constitutional Vitals: Temp Pulse Resp BP Pulse Ox 97.8 F 70 17 132/62 92 02/23/18 07:23 02/23/18 07:23 02/23/18 07:23 02/23/18 07:23 02/23/18 07:23 General appearance: Present: cooperative, A&O X 3, pleasant, no acute distress, answers questions appropriately - Head Head exam: Present: atraumatic, normocephalic - Eye Eye exam: Present: PERRL, conjuntiva pink, sclera anicteric Pupils: Present: PERRL - Neck Neck exam general surgery: Present: supple, trachea midline. Absent: lymphadenopathy - Respiratory Respiratory exam: Present: CTAB. Absent: accessory muscle use, rales, rhonchi, wheezes - Cardiovascular Cardiovascular exam: Present: RRR, +S1, +S2. Absent: diastolic murmur, gallop, rubs, systolic murmur - GI/Abdominal GI/Abdominal exam: Present: normal bowel sounds, soft, no peritoneal signs. Absent: distended, tenderness - Extremities Exam Extremities exam: Present: warm, radial pulses palpable and symmetrical. Absent : calf tenderness, cyanotic, pedal edema Additional comments: slight RLE edema - [place] Comments: right hip incision drsg dry and intact. - Neurological Exam Neurological exam: Present: CN II-XII intact, oriented X3, no focal deficits. Absent: pronater drift, facial droop, speech deficit - Skin Skin exam: Present: dry, intact - Patient Status Disposition: Home Health Service Condition: Good Functional capacity at discharge: uses cane/walker Overall status at discharge: patient is progressing back to baseline - Discharge Instructions Instructions: Total Hip Replacement (DC), Diabetic Foot Care (DC), Diabetic Hypoglycemia (DC) Follow Up With: yocasta dunaway [Other] - 03/02/18 2:10 pm NONE,PCP [Primary Care Provider] - Pietro Joyce MD [Non-Partnered Physician] - 02/26/18 11:00 am - Diet and Activity Activity: as per physical therapy Diet: advance to your usual diet, diabetic diet
--- NOTE | 2018-02-23 11:52 | Physician Discharge Referral ---
Home Health/Hosp Referral Info Transfer to: Home Health Provider in Charge Post Discharge: PCP - Diagnosis (1) S/P hip replacement Priority: Primary Status: Acute (2) Constipation Priority: Secondary Status: Acute (3) Diabetes Priority: Secondary Status: Chronic (4) HTN (hypertension) Priority: Secondary Status: Chronic (5) CAD (coronary artery disease) Priority: Secondary Status: Chronic (6) Osteoarthritis Priority: Secondary Status: Chronic (7) Anemia Priority: Secondary Status: Acute - Respiratory Orders Smoking Cessation: Smoking cessation has been advised. For more information, call the [place] Tobacco Quit Line at 3-797-DKGI-NOW. - Diet/Nutrition Diet/Nutrition Orders: No Concentrated Sweets - Activity Activity Orders: Ambulate, Walker - Services Needed Following services are medically necessary services: Nursing, Physical Therapy - Transfer Medications Home Medications: Aspirin [Lo-Dose Aspirin EC] 81 mg PO DAILY 02/15/18 [History] Atenolol [Tenormin] 50 mg PO DAILY 02/15/18 [History] Atorvastatin Calcium [Lipitor] 80 mg PO HS 02/15/18 [History] Chlorthalidone 12.5 mg PO DAILY 02/15/18 [History] Glimepiride [Amaryl] 2 mg PO DAILY 02/15/18 [History] Levothyroxine [Synthroid] 75 mcg PO DAILY 02/15/18 [History] Metformin HCl 500 mg PO BID 02/15/18 [History] Vitamin E Acetate [Vitamin E] 400 unit PO DAILY 02/15/18 [History] Acetaminophen [Tylenol] 650 mg PO Q4HR PRN tablet 02/23/18 [Rx] Docusate [Colace] 100 mg PO DAILY PRN capsule 02/23/18 [Rx] Famotidine [Pepcid] 10 mg PO BIDAC tablet 02/23/18 [Rx] Insulin LISPRO [HumaLOG] 0 units SQ HS vial 02/23/18 [Rx] Insulin LISPRO [HumaLOG] 0 units SQ TIDAC vial 02/23/18 [Rx] Iron Polysaccharide Complex [Ferrex 150] 150 mg PO DAILY capsule 02/23/18 [Rx] Mag Hydrox/Al Hydrox/Simeth [Maalox] 15 ml PO Q6HR PRN udc 02/23/18 [Rx] Magnesium Oxide [Mag-Ox] 400 mg PO BID tablet 02/23/18 [Rx] Allergies/Adverse Reactions: 3 Allergy/AdvReac Type Severity Reaction Status Date / Time codeine AdvReac Vomiting Verified 02/15/18 00:25 Certification: Further, I certify that my clinical findings support that this patient is homebound (i.e. absences from home require considerable and taxing effort and are for medical reasons or mu-ism services or infrequently or short duration when for other reasons) because: Homebound Reason: Patient requires assistance of a person or device to safely leave home, Post-surgery restriction and or conditions limit ability to leave home Attestation: My signature below is to certify that this patient is under my care and that I, or nurse practitioner, or a physician's bus assistant working with me, has a face-to -face encounter with this patient.
== END 2018-02-23 14:05 | disposition home health service (06) | DRG 560 ==
LOC: INPGRE 02-14 23:35